=== PATIENT | female | born 1965 | race Caucasian/White ===

== ENCOUNTER 2018-12-17 00:13 | Inpatient (IN) | payer SELFPAY ==
[2018-12-17] MEDS ORDERED: Albuterol Sulfate 2.5 mg/3 ml Neb ONE (00:40)
[2018-12-17] MEDS ORDERED: Magnesium 2 GM/50 ML BAG (IN WATER) ONE (00:59)
[2018-12-17] MEDS ORDERED: Lorazepam 2 MG/ML VIAL ONE (00:59)
[2018-12-17 01:14] LABS: BHCG - Serum Negative (NEGATIVE); Pregs Control Background? CLEAR/WHITE (CLR/WHITE); Pregs Control Bar Appear? YES (CONTROL BAR)
[2018-12-17 01:21] LABS: Hemoglobin 11.7 g/dL (12.0-16.0); Mean Corpuscular HGB CONC 32.3 g/dL (32.0-36.0); Mean Corpuscular Hemoglobin 33.4 pg (27.0-31.0); Platelet Count 346 thou/uL (130-400); Red Blood Cell (RBC) Count 3.51 mill/uL (4.20-5.40); White Blood Cell (WBC) Count 16.7 thou/uL (4.8-10.8)
[2018-12-17 01:28] LABS: Band 27 % (5-11); Lymphocytes 10 % (21-51); MDiff Complete? YES; Neutrophil 63 % (42-75); Platelet Morphology Comment Appears Adequate
[2018-12-17 01:32] LABS: ALT (SGPT) 26 U/L (8-55); AST (SGOT) 49 U/L (5-34); Albumin 3.5 g/dL (3.5-5.0); Alkaline Phosphatase 46 U/L (40-150); Anion Gap 15 mmol/L (10-20); BUN (Urea Nitrogen) 16 mg/dL (9.8-20.1); Bilirubin, Total 0.2 mg/dL (0.2-1.2); Calc. Creatinine Clearance 0 mL/min (70-130); Calcium 9.1 mg/dL (7.8-10.44); Carbon Dioxide 20 mmol/L (22-29); Chloride 100 mmol/L (98-107); Estimated GFR-MDRD Greater than 90; Globulin 3.3 g/dL (2.4-3.5); Glucose 129 mg/dL (70-105); Potassium 3.4 mmol/L (3.5-5.1); Protein, Total 6.8 g/dL (6.0-8.3); Sodium 132 mmol/L (136-145)
[2018-12-17] MEDS ORDERED: HYDROcodone/Acetaminophen 5/325 mg Tablet PO PRN (02:33)
[2018-12-17] MEDS ORDERED: Bisacodyl 10 MG SUPP PR PRN (02:33)
[2018-12-17] MEDS ORDERED: Loperamide HCl 2 MG CAP PO PRN (02:33)
[2018-12-17] MEDS ORDERED: Senokot S 8.6-50 MG TAB PO PRN (02:33)
[2018-12-17] MEDS ORDERED: Calcium Carbonate 500 MG ChewTAB PO PRN (02:33)
[2018-12-17] MEDS ORDERED: Sodium Chloride 0.9% 1,000 ML IV SCH (02:45)
[2018-12-17 02:48] LABS: Actual Bicarbonate (HCO3a) 19.7 mEq/L (22-28); Analyzer IN Cardio ER; Base Excess (BEa) -7.5 mEq/L (-2.0 to +3.0); Calcium, Ionized 1.08 mmol/L (1.12-1.30); Carboxyhemoglobin (COHb) 0.2 gm% (0.0-3.0); Hemoglobin (Hb) 11.7 g/dL (12.0-16.0); Potassium - ABG Lab 2.97 mmol/L (3.70-5.30)
[2018-12-17 02:59] LABS: O2 Tension (PaO2) 49.8 mmHg (80.0-100.0); Puncture Site RRA; pH, Arterial 7.24 (7.35-7.45)
[2018-12-17] MEDS ORDERED: cefTRIAXone\\ROCEPHIN 2 GM in Sodium Chloride 0.9% 100 ML IVPB SCH (03:00)
[2018-12-17] MEDS ORDERED: methylPREDNISolone Sod Succ 40 MG VIAL ONE (03:05)
[2018-12-17] MEDS ORDERED: cefTRIAXone\\ROCEPHIN 2 GM VIAL ONE (03:07)
[2018-12-17] MEDS: NS 0.9% w/ 20 MEQ KCL 1,000 ML/1,000 ML BAG IV SCH ×2 (03:12→15:08)
[2018-12-17 03:55] LABS: Band 33 % (5-11); Hemoglobin 11.5 g/dL (12.0-16.0); Lymphocytes 8 % (21-51); MDiff Complete? YES; Mean Corpuscular HGB CONC 33.2 g/dL (32.0-36.0); Mean Corpuscular Hemoglobin 33.9 pg (27.0-31.0); Metamyelocyte 1 % (0-0); Monocytes 2 % (0-10); Neutrophil 56 % (42-75); Platelet Count 272 thou/uL (130-400); Platelet Morphology Comment Appears Adequate; RBC Distribution Width 11.9 % (11.5-14.5); Red Blood Cell (RBC) Count 3.38 mill/uL (4.20-5.40); White Blood Cell (WBC) Count 15.1 thou/uL (4.8-10.8)
[2018-12-17 04:05] LABS: ALT (SGPT) 24 U/L (8-55); AST (SGOT) 49 U/L (5-34); Albumin 3.1 g/dL (3.5-5.0); Alkaline Phosphatase 39 U/L (40-150); Anion Gap 17 mmol/L (10-20); BUN (Urea Nitrogen) 14 mg/dL (9.8-20.1); Bilirubin, Total 0.2 mg/dL (0.2-1.2); Calc. Creatinine Clearance 0 mL/min (70-130); Calcium 7.7 mg/dL (7.8-10.44); Carbon Dioxide 18 mmol/L (22-29); Chloride 101 mmol/L (98-107); Estimated GFR-MDRD Greater than 90; Globulin 2.3 g/dL (2.4-3.5); Glucose 192 mg/dL (70-105); Potassium 3.1 mmol/L (3.5-5.1); Protein, Total 5.4 g/dL (6.0-8.3); Sodium 133 mmol/L (136-145)
[2018-12-17 04:06] LABS: Troponin I Less than 0.010 ng/mL (< 0.028)
--- NOTE | 2018-12-17 04:07 | HP ---
PRIMARY CARE PHYSICIAN: [facility] Call admission. REASON FOR ADMISSION: Transfer from [facility] for bilateral pneumonia and respiratory failure. HISTORY OF PRESENT ILLNESS: A 53-year-old female who went to [place] [facility] today with complaint of increasing shortness of breath. The patient reports that she is sick since August after [place]. She has intermittent coughing since then. She was trying several [id number]-ova-[id number] remedies without any significant improvement. The patient started feeling more shortness of breath for about a week, which was gradually getting worse. She was having difficulty talking and she was also having difficulty with ambulation. She was following primary care physician in [place] and she was diagnosed with bronchitis. She was given symptomatic treatment. She was given trial of antibiotic therapy as well. The patient did not respond to any antibiotic therapy as an outpatient basis and her condition gradually deteriorated and that is why she went to [place] [facility], where she was found with hypoxia, saturation was 80% on room air. She was tachycardic. Routine blood test showed leukocytosis with left shift. She was in moderate respiratory distress. She was transferred to our hospital. Her chest x-ray over there showed bilateral multifocal pneumonia and her presentation was consistent with sepsis. Over there, the patient has received Solu-Medrol, IV fluid, and antibiotic therapy. When I saw this patient in our emergency room at that time, the patient was in respiratory distress. She was tachypneic. We repeated chest x-ray. We did ABG and started on broad-spectrum antibiotic therapy. The patient was also kept on BiPAP. The patient was seen several times in the emergency room. REVIEW OF SYSTEMS: CONSTITUTIONAL: Negative for weight loss or gain, ability to conduct usual activities. SKIN: Negative for rash, itching. EYES: Negative for double vision, pain. ENT/MOUTH: Negative for nose bleeding, neck stiffness, pain, tenderness. CARDIOVASCULAR: Negative for palpitations, dyspnea on exertion, orthopnea. RESPIRATORY: Negative for shortness of breath, wheezing, cough, hemoptysis, fever or night sweats. GASTROINTESTINAL: Negative for poor appetite, abdominal pain, heartburn, nausea, vomiting, constipation, or diarrhea. GENITOURINARY: Negative for urgency, frequency, dysuria, nocturia. MUSCULOSKELETAL: Negative for pain, swelling. NEUROLOGIC/PSYCHIATRIC: Negative for anxiety, depression. ALLERGY/IMMUNOLOGIC: Negative for skin rash, bleeding tendency. Please see my HPI for pertinent positive and negative. All other review of systems reviewed and negative except as mentioned in HPI. CURRENT HOME MEDICATIONS: 1. Adderall one tablet b.i.d. 2. Celexa 40 mg daily. 3. Clonazepam 0.5 mg t.i.d. 4. Azithromycin, she finished recently. 5. Tessalon t.i.d. p.r.n. SOCIAL HISTORY: The patient drinks alcohol occasionally once a week. She smokes about one-half pack per day for last several years. She denies any other illicit drug abuse. PAST MEDICAL HISTORY: Reviewed and negative. PAST PSYCHIATRIC HISTORY: Attention-deficit hyperactivity disorder, anxiety, and depression. PAST SURGICAL HISTORY: Hysterectomy. FAMILY HISTORY: No strong family history of premature coronary artery disease, stroke, or cancer. EMERGENCY ROOM COURSE: The patient has received Solu-Medrol 125 mg at [facility]. She received Rocephin and we are giving her here levofloxacin, vancomycin, magnesium sulfate, IV fluid, lorazepam 1 mg. ALLERGIES: NO KNOWN DRUG ALLERGIES. PHYSICAL EXAMINATION: VITAL SIGNS: Currently, blood pressure 121/85, pulse 105, respiratory rate 47, temperature 98.8, saturation 93% on BiPAP, weight 67.1 kg. GENERAL: The patient is currently in respiratory distress, unable to talk in full sentence. HEAD: Normocephalic, atraumatic. EYES: Pupils round, reactive to light. Extraocular muscle intact. ENT: Oropharynx within normal limits. Moist mucous membranes. No oral lesion. No pharyngeal erythema. No exudate. NECK: Supple. No JVD. No thyromegaly. No carotid bruit. No jugular venous distention. LUNGS: Bilateral rales noted. Bilateral wheezing heard. CARDIAC: S1, S2 regular. Tachycardia. No murmur, no gallop, no rub. ABDOMEN: Soft. Bowel sounds present. Nontender. Nondistended. No organomegaly. No mass. No suprapubic tenderness. BACK: Unremarkable. No CVA tenderness. EXTREMITIES: Upper extremities, passive movement of all joints are normal. Lower extremity, no edema. Good distal pulsation. No calf tenderness. SKIN: No skin rash. HEMATOLOGICAL SYSTEM: No lymphadenopathy. NEUROLOGIC: Nonfocal examination. SIGNIFICANT LABORATORY DATA: Chest x-ray consistent with bilateral multifocal pneumonia. CBC: WBC 16.7, hemoglobin 11.7, platelet 346 with bandemia. ABG; pH 7.24, CO2 of 47, O2 of 49.8, saturation 80.5, bicarb 19.7. BMP: Sodium 132, potassium 3.4, chloride 100, carbon dioxide 20, anion gap 15, BUN 16, creatinine 0.64, glucose 129, calcium 9.1. LFT: AST 49, ALT 26, alkaline phosphatase 46, albumin 3.5. test, negative. Troponin less than 0.010. Hospital course at [place] reviewed. ASSESSMENT AND PLAN: 1. Acute respiratory failure with hypoxia and hypercapnia secondary to underlying multifocal pneumonia. The patient is currently kept on BiPAP. We will see how she does. If her condition deteriorates and if she is not tolerating BiPAP, then we have very low threshold for intubation. We will closely monitor in IMCU. Pulmonary group will be consulted and the patient will be kept on broad-spectrum antibiotic therapy. 2. Bilateral multifocal pneumonia, community-acquired pneumonia as well as failure of outpatient therapy. The patient will be kept on broad-spectrum antibiotic therapy with Rocephin 2 g IV daily, Levaquin 750 mg daily, and vancomycin as per pharmacy adjusted dose, Mucinex 600 mg twice daily, and we will also give her Solu-Medrol 40 mg IV q.6 hourly along with IV fluid. We will also check respiratory virus panel as well as Legionella urinary test and streptococcal urinary test. We will repeat labs tomorrow. 3. Hypokalemia. The patient has hypokalemia and the patient is receiving IV fluid with potassium from [facility]. Her potassium has slight improvement. We will repeat labs tomorrow. 4. Macrocytic anemia. The patient will be given folic acid and vitamin B12 therapy. 5. Sepsis with acute organ dysfunction. The patient has sepsis criteria with leukocytosis with bandemia, respiratory failure. Source of infection is bilateral pneumonia. The patient is already on broad spectrum antibiotic therapy. 6. Tobacco abuse disorder. Smoking cessation counseling given. We will offer nicotine patch if needed. 7. Deep venous thrombosis prophylaxis. Lovenox 40 mg subcu daily. 8. Gastrointestinal prophylaxis. Pepcid 20 mg p.o. b.i.d. 9. Code status. The patient is full code. The patient does not have any surrogate decision maker. 10. Disposition plan. Based on clinical course, the patient's condition is guarded. She will require several days in hospital. Job ID: [id number]
[2018-12-17 04:46] LABS: Legionella Urinary Ag Negative (Negative); Strep pneumo Urine Ag NEGATIVE (NEGATIVE)
[2018-12-17 05:50] VITALS: BMI 34.0
[2018-12-17] MEDS: methylPREDNISolone Sod Succ 40 MG VIAL IVP SCH ×3 (06:11→16:49)
--- NOTE | 2018-12-17 07:35 | RAD ---
CHEST ONE VIEW: INDICATIONS: History of hypoxia and pneumonia. COMPARISON: None. FINDINGS: There are prominent areas of air space opacity and consolidation within both lungs, predominantly wit hin both upper lobes and both lower lobes. Heart size is mildly prominent. No pleural effusion or p neumothorax is evident. No acute osseous abnormality is evident. IMPRESSION: Multifocal pneumonia. POS: BH
[2018-12-17] MEDS: Vancomycin HCl 1 GM in Premix Bag 1 BAG IVPB SCH ×2 (08:05→20:15)
[2018-12-17] MEDS ORDERED: Enoxaparin Sodium 40 MG/0.4 ML SYRINGE ONE (08:49)
[2018-12-17] MEDS ORDERED: Famotidine 20 MG TAB ONE (08:49)
[2018-12-17] MEDS: Enoxaparin Sodium 40 MG/0.4 ML SYRINGE SC SCH (08:55)
[2018-12-17] MEDS: Famotidine 20 MG TAB PO SCH ×2 (08:58→20:16)
[2018-12-17] MEDS ORDERED: Morphine 4 MG/ML VIAL ONE (09:23)
[2018-12-17 09:37] LABS: Actual Bicarbonate (HCO3a) 22.3 mEq/L (22-28); CO2 Tension 36.7 mmHg (35.0-45.0); Carboxyhemoglobin (COHb) 0.5 gm% (0.0-3.0); Hemoglobin (Hb) 11.2 g/dL (12.0-16.0); O2 Tension (PaO2) 87.8 mmHg (80.0-100.0); Potassium - ABG Lab 3.21 mmol/L (3.70-5.30)
[2018-12-17 09:39] LABS: ALV-art Gradient 222.825 (0-20); Puncture Site LB
--- NOTE | 2018-12-17 10:14 | CON ---
DATE OF CONSULTATION: HISTORY OF PRESENT ILLNESS: A 53-year-old female from [place], [place]. I spoke to her daughter who gave adequate history, who presented to the ER in [place] with marked shortness of breath, coughing, fever, several days' duration. She smokes a pack a day. She has history of heavy alcohol abuse in the past. She was placed on BiPAP. She is now in the ICU, on BiPAP, agitated. She was given 4 mg IV morphine. MEDICATIONS: Medicine from home includes, 1. Adderall 30 mg two a day. 2. Celexa 40 mg once a day. 3. Clonazepam 0.5 three times a day. 4. Vancomycin. 5. Levaquin. 6. Magnesium. 7. Ativan. Her sats were 88% on 4 L until she was put on BiPAP. SOCIAL HISTORY: According to the daughter, the patient is otherwise relatively healthy. She works at a daycare center. PAST SURGICAL HISTORY: Otherwise included hysterectomy. PAST MEDICAL HISTORY: ADHD, otherwise negative for diabetes or hypertension. REVIEW OF SYSTEMS: Otherwise unobtainable, though she is awake, alert, responsive, somewhat agitated. PHYSICAL EXAMINATION: VITAL SIGNS: Her saturation is 90% on BiPAP, pulse 100, respiratory drives about 30 to 40 minutes, blood pressure 130/80. CHEST: Bilateral crackles and wheezing. CARDIAC: Normal S1 and S2. No gallops. ABDOMEN: Soft. LABORATORY DATA: White count 07310, hemoglobin and hematocrit are 11 and 34, platelet count is normal. Sodium is 133, otherwise lytes are normal. Her AST is 49. Her PO2 was only 49, pCO2 40, pH 7.24 on 2 L nasal O2. Blood gases on the BiPAP pending. She has had apparently emergency cultures, pending. IMPRESSION: 1. Respiratory failure, acute respiratory distress syndrome. 2. Tobacco with history of alcohol abuse. 3. Attention deficit hyperactivity disorder. 4. Depression. PLAN: I agree with present antibiotic coverage. Steroids. Neb treatments. Supportive care. If condition gets worse, to be intubated. It is a 45-minute critical time. Job ID: [id number]
[2018-12-17] MEDS: Cefepime 2 GM in Sodium Chloride 0.9% 100 ML IVPB SCH ×2 (10:54→21:21)
[2018-12-17] MEDS: guaiFENesin ER 600 MG TAB PO SCH ×2 (10:54→20:17)
[2018-12-17] MEDS: Multivitamins, Adult 10 ML, Folic Acid 1 MG, Thiamine HCl 100 MG in Dextrose 5 %-0.45 %... IV SCH (10:54)
[2018-12-17] MEDS: Morphine 4 MG/ML VIAL SLOW IVP PRN ×2 (12:17→16:49)
[2018-12-17] MEDS: Potassium Chloride 10 MEQ/100 ML PREMIX BAG IVPB SCH ×2 (13:27→16:49)
--- NOTE | 2018-12-17 14:34 | PRG ---
DATE OF SERVICE: 12/17/2018 SUBJECTIVE: The patient is in ICU A1 bed. She is intubated. She was moved from the hospital for bilateral pneumonia and respiratory failure. OBJECTIVE: VITAL SIGNS: Blood pressure is 126/80, pulse is 93, respiratory rate is 49, O2 saturation is 99. She is wearing the BiPAP mask during my visit. HEENT: Her pupils respond to light properly. Sclerae are nonicteric. LUNGS: Bilateral rales and rhonchi present on multiple different levels. HEART: S1 and S2, normal. No S3. No S4. ABDOMEN: Soft, nontender. Bowel sounds are present. No organomegaly. EXTREMITIES: No clubbing, cyanosis, or edema. NEUROLOGIC: She follows my commands. She moves her all 4 extremities when she is asked. SKIN: No rash or erythema. LABORATORY DATA: Labs showed white count of 15.1, hemoglobin 11.5, hematocrit 34.5, platelet count is 272,000. ABGs showed pH of 7.4, pCO2 of 36.7, PO2 of 87.8, and base excess is -2. Sodium of 133, potassium 3.1, chloride 101, CO2 of 18, BUN 14, creatinine 0.861, glucose 192, calcium 7.7, AST 49, ALT 24, alkaline phosphatase 39. Troponin x2 normal. Albumin 3.1, globulin 2.3. Third generation TSH 0.4497. Antigen of pneumophila, Legionella negative, and Streptococcal pneumonia antigen negative in urine. Microbiology, respiratory virus panel showed positive finding on human metapneumovirus. IMPRESSION: 1. Acute respiratory failure with hypoxemia and hypercapnia secondary to multifocal pneumonia. The patient is currently on BiPAP, managed by customer account manager. 2. Bilateral multifocal pneumonia. 3. Hypokalemia, for replacement. We will check magnesium level. 4. Microcytic anemia. 5. Sepsis with acute organ dysfunction. 6. Current tobacco user. PLAN: Plan is to continue her cefepime, Levaquin, and vancomycin. Continue IV steroids, methylprednisolone 40 mg q.6 hours IV push. Continue DuoNebs. Supplement potassium. Check magnesium level, and continue DVT prophylaxis with Lovenox. Job ID: [id number]
[2018-12-17] MEDS: clonazePAM 0.5 MG TAB PO SCH ×2 (15:17→20:17)
[2018-12-18] MEDS: NS 0.9% w/ 20 MEQ KCL 1,000 ML/1,000 ML BAG IV SCH ×3 (00:13→21:13)
[2018-12-18] MEDS: methylPREDNISolone Sod Succ 40 MG VIAL IVP SCH ×4 (00:25→17:29)
[2018-12-18] MEDS: Morphine 4 MG/ML VIAL SLOW IVP PRN ×4 (06:10→20:00)
[2018-12-18 07:13] LABS: Vancomycin, Trough 8.7 ug/mL
--- NOTE | 2018-12-18 08:18 | PRG ---
DATE OF SERVICE: 12/18/2018 SUBJECTIVE: The patient is seen and examined at the bedside. She seems to be doing better. She just was changed from BiPAP to nasal cannula. She is saturating at 95% on 4 L by nasal cannula. OBJECTIVE: VITAL SIGNS: Her blood pressure is 123/78, pulse is 83, respiratory rate is about 25, O2 saturation is as I said above 95% on 4 L by nasal cannula. HEENT: Her pupils are responding to light properly. Sclerae are nonicteric. LUNGS: Bilateral rales are present in both lungs. HEART: S1 and S2 are normal. No S3. No S4. ABDOMEN: Soft, nontender, and nondistended. EXTREMITIES: No clubbing, cyanosis, or edema. NEUROLOGIC: She follows my commands. She moves her all 4 extremities. There are no any motor deficits. LABORATORY DATA: Labs are pending. Microbiology: Two blood cultures, no growth so far. Respiratory viral, NAAT, and nasopharyngeal swab; positive for human metapneumovirus. IMPRESSION: 1. Acute respiratory failure with hypoxemia and hypercapnia secondary to multifocal pneumonia. The patient is just switched to nasal cannula from BiPAP. She seems to be doing quite well so far, but this was just done 5 minutes ago. The patient is on broad-spectrum antibiotics with vancomycin, cefepime, and Levaquin. We will continue that. 2. Bilateral multifocal pneumonia. 3. Macrocytic anemia with MCV of 102. Check her for vitamin B12 and folic acid deficiency. 4. Hypokalemia, status post replacement. This morning labs are pending. 5. Sepsis with acute organ dysfunction. 6. Current tobacco user. PLAN: As mentioned above, continue broad-spectrum antibiotics. Continue IV steroids. Continue nebulizers. Supplement electrolytes if needed based on the upcoming blood work results. Continue DVT prophylaxis. Job ID: [id number]
--- NOTE | 2018-12-18 08:25 | PRG ---
DATE OF SERVICE: 12/18/2018 SUBJECTIVE: Rica Barron, this morning, is awake, alert, responsive. She is better. X-ray still shows extensive bilateral pulmonary infiltrates. She is still on BiPAP, did not tolerate nasal O2 at 5 L. OBJECTIVE: VITAL SIGNS: Respirations 24, pulse 83, blood pressure 127/78, and sats are 98% on BiPAP. I's and O's have been consistently good. CHEST: Decreased breath sounds, bilateral crackles. CARDIAC: Normal S1 and S2. No gallops. ABDOMEN: No masses. DIAGNOSTIC DATA: X-ray shows diffuse pulmonary infiltrates. Awaiting culture reports. ASSESSMENT: 1. Respiratory failure, acute respiratory distress syndrome. 2. Viral bronchopneumonia. 3. Alcohol abuse. PLAN: Continue broad-spectrum antibiotics. Try high flow. Continue observation in the ICU. One-half hour of critical care time. Job ID: [id number]
[2018-12-18] MEDS: Vancomycin HCl 1 GM in Premix Bag 1 BAG IVPB SCH ×2 (08:38→14:54)
[2018-12-18] MEDS: guaiFENesin ER 600 MG TAB PO SCH ×2 (08:39→19:59)
[2018-12-18] MEDS: Famotidine 20 MG TAB PO SCH ×2 (08:39→19:59)
[2018-12-18] MEDS: Enoxaparin Sodium 40 MG/0.4 ML SYRINGE SC SCH (08:39)
[2018-12-18] MEDS: Citalopram 20 MG TAB PO SCH (08:39)
--- NOTE | 2018-12-18 08:40 | RAD ---
AP VIEW CHEST: HISTORY: Patient with respiratory distress and ventilator dependency. FINDINGS: AP view chest is obtained on 12/18/2018. Comparison is made to previous from 12/17/2018. AP view chest demonstrates EKG leads seen over the chest. Pulmonary vascular congestion is seen. Diffuse airspace opacities seen throughout the lungs compatible with bilateral pneumonia or pulmonary edema. No significant interval change is seen. No evidence of pneumothorax seen. IMPRESSION: Pulmonary vascular congestion and diffuse bilateral airspace opacities. Transcribed Date/Time: 12/18/2018 8:41 AM
[2018-12-18] MEDS: clonazePAM 0.5 MG TAB PO SCH ×3 (08:44→19:59)
[2018-12-18 09:11] LABS: Hemoglobin 10.2 g/dL (12.0-16.0); Mean Corpuscular HGB CONC 33.6 g/dL (32.0-36.0); Mean Corpuscular Hemoglobin 33.7 pg (27.0-31.0); Mean Platelet Volume 7.1 fL (7.4-10.4); Platelet Count 330 thou/uL (130-400); Red Blood Cell (RBC) Count 3.02 mill/uL (4.20-5.40)
[2018-12-18 09:32] LABS: Anion Gap 12 mmol/L (10-20); BUN (Urea Nitrogen) 25 mg/dL (9.8-20.1); Calc. Creatinine Clearance 137 mL/min (70-130); Calcium 8.2 mg/dL (7.8-10.44); Carbon Dioxide 26 mmol/L (22-29); Chloride 103 mmol/L (98-107); Estimated GFR-MDRD Greater than 90; Glucose 155 mg/dL (70-105); Potassium 3.4 mmol/L (3.5-5.1); Sodium 138 mmol/L (136-145)
[2018-12-18 10:03] LABS: Folate (Folic Acid) 8.6 ng/mL (7.0-31.4)
[2018-12-18] MEDS: Cefepime 2 GM in Sodium Chloride 0.9% 100 ML IVPB SCH ×2 (10:33→21:32)
[2018-12-18] MEDS: Multivitamins, Adult 10 ML, Folic Acid 1 MG, Thiamine HCl 100 MG in Dextrose 5 %-0.45 %... IV SCH (10:34)
[2018-12-18 10:52] LABS: Band 4 % (5-11); Eosinophils 1 % (0-10); Hypochromia SLIGHT = 6-15 cells (100X) (0-5/hpf); Large Platelets SLIGHT; Lymphocytes 7 % (21-51); MDiff Complete? YES; Metamyelocyte 1 % (0-0); Microcytosis SLIGHT = 6-15 cells (100X) (0-5/hpf); Monocytes 7 % (0-10); Neutrophil 80 % (42-75); Platelet Morphology Comment Appears Adequate; Polychromasia SLIGHT = 2-3 cells (100X) (0-2/hpf); Toxic Granulation SLIGHT; White Blood Cell (WBC) Count 20.5 thou/uL (4.8-10.8)
[2018-12-18] MEDS ORDERED: Morphine 4 MG/ML VIAL ONE (19:38)
[2018-12-19] MEDS: Vancomycin HCl 1 GM in Premix Bag 1 BAG IVPB SCH ×2 (00:07→08:15)
[2018-12-19] MEDS: methylPREDNISolone Sod Succ 40 MG VIAL IVP SCH ×3 (00:07→18:13)
[2018-12-19] MEDS: Morphine 4 MG/ML VIAL SLOW IVP PRN ×3 (06:04→20:00)
[2018-12-19] MEDS: NS 0.9% w/ 20 MEQ KCL 1,000 ML/1,000 ML BAG IV SCH ×2 (06:04→08:36)
[2018-12-19 07:08] LABS: Anion Gap 10 mmol/L (10-20); BUN (Urea Nitrogen) 25 mg/dL (9.8-20.1); Calc. Creatinine Clearance 128 mL/min (70-130); Calcium 8.5 mg/dL (7.8-10.44); Carbon Dioxide 33 mmol/L (22-29); Chloride 98 mmol/L (98-107); Estimated GFR-MDRD Greater than 90; Glucose 132 mg/dL (70-105); Potassium 3.5 mmol/L (3.5-5.1); Sodium 137 mmol/L (136-145)
[2018-12-19 07:26] LABS: Hemoglobin 10.5 g/dL (12.0-16.0); Mean Corpuscular HGB CONC 32.9 g/dL (32.0-36.0); Mean Platelet Volume 7.4 fL (7.4-10.4); Platelet Count 351 thou/uL (130-400); RBC Distribution Width 12.1 % (11.5-14.5); Red Blood Cell (RBC) Count 3.18 mill/uL (4.20-5.40); White Blood Cell (WBC) Count 21.1 thou/uL (4.8-10.8)
[2018-12-19 07:34] LABS: Band 1 % (5-11); Hypochromia SLIGHT = 6-15 cells (100X) (0-5/hpf); Large Platelets SLIGHT; Lymphocytes 9 % (21-51); MDiff Complete? YES; Microcytosis SLIGHT = 6-15 cells (100X) (0-5/hpf); Monocytes 4 % (0-10); Neutrophil 80 % (42-75); Nucleated RBC 1 % (0); Platelet Morphology Comment Appears Adequate; Polychromasia SLIGHT = 2-3 cells (100X) (0-2/hpf); Reactive Lymphocytes 6 % (0-10); Toxic Granulation SLIGHT
[2018-12-19] MEDS ORDERED: Bacteriostatic Water 30 ML VIAL FS PRN (08:15)
--- NOTE | 2018-12-19 08:24 | PRG ---
DATE OF SERVICE: 12/19/2018 SUBJECTIVE: This morning, she is awake, alert, and responsive. She is better, less short of breath. She is now on high-flow instead of the BiPAP. OBJECTIVE: VITAL SIGNS: Saturations are 96%, blood pressure 117/73, respiratory rate 20, pulse is 80. I's and O's . CHEST: Decreased breath sounds. No wheezing, but bilateral crackles. CARDIAC: Sinus tach. ABDOMEN: No masses. LABORATORY DATA: Lytes are normal. Bicarb is 33. All cultures so far negative. IMPRESSION: Bilateral bronchopneumonia, community-acquired. Respiratory failure, improved. Major anxiety, persistent. PLAN: Continue observation in the ICU. Maxipime and Levaquin on board. Discontinue vancomycin. Continue steroids. Continue neb treatments. Still awaiting cultures. One-half hour of critical care time. Job ID: [id number]
[2018-12-19] MEDS: Enoxaparin Sodium 40 MG/0.4 ML SYRINGE SC SCH (08:35)
[2018-12-19] MEDS: guaiFENesin ER 600 MG TAB PO SCH ×2 (08:35→19:59)
[2018-12-19] MEDS: Citalopram 20 MG TAB PO SCH (08:35)
[2018-12-19] MEDS: Famotidine 20 MG TAB PO SCH ×2 (08:35→19:59)
[2018-12-19] MEDS ORDERED: methylPREDNISolone Sod Succ 40 MG VIAL IVP SCH (09:00)
--- NOTE | 2018-12-19 09:22 | RAD ---
AP VIEW CHEST: HISTORY: Ventilator dependent patient. FINDINGS: AP view chest obtained on 12/19/2018. Comparison made to previous exam from 12/18/2018. Extensive pulmonary vascular congestion and perihilar airspace opacities seen compatible with pulmona ry edema. No significant interval changes seen. IMPRESSION: Stable AP view chest. Transcribed Date/Time: 12/19/2018 9:45 AM
[2018-12-19] MEDS: clonazePAM 0.5 MG TAB PO SCH ×3 (09:26→19:59)
[2018-12-19] MEDS: Multivitamins, Adult 10 ML, Folic Acid 1 MG, Thiamine HCl 100 MG in Dextrose 5 %-0.45 %... IV SCH (09:27)
[2018-12-19] MEDS: Cefepime 2 GM in Sodium Chloride 0.9% 100 ML IVPB SCH ×2 (09:27→22:02)
[2018-12-19] MEDS ORDERED: clonazePAM 0.5 MG TAB PO SCH (09:30)
--- NOTE | 2018-12-19 09:40 | PRG ---
DATE OF SERVICE: 12/19/2018 SUBJECTIVE: The patient is seen and examined at the bedside. She is feeling very exhausted. She did not have any appetite. She did not have any food for the last couple of days. Now, she is switched to high-flow nasal cannula. OBJECTIVE: VITAL SIGNS: Blood pressure is 117/73, respiratory rate is 25, heart rate 82, O2 saturation is 93%. She is on high-flow cannula. HEENT: Sclerae nonicteric. Oral mucosa is somewhat dry. LUNGS: Bilateral rales present. Occasional wheezes on both sides. HEART: S1, S2 normal. No S3. No S4. ABDOMEN: Soft, mildly distended, nontender. EXTREMITIES: No clubbing, cyanosis, or edema. NEUROLOGICAL EXAMINATION: She follows my commands. She moves her all 4 extremities. She is very tired and exhausted. No erythema or rash. LABORATORY DATA: Labs showed white count of 21.1, hemoglobin of 10.5, hematocrit 32.0, MCV 101, platelet count is 351,000. Sodium of 137, potassium 3.5, chloride 98, CO2 of 33, BUN 25, creatinine 0.62, glucose 132. Procalcitonin 0.14. Vancomycin trough 19.0. Vitamin B12 1739 and folic acid 8.6. Chest x-ray with some improvement of the bilateral infiltrates. IMPRESSION: 1. Acute respiratory failure with hypoxemia and hypercapnia secondary to multifocal pneumonia. The patient is switched to high-flow cannula. She seems to be oxygenating fine. Her antibiotic regimen was trimmed to cefepime and Levaquin, and vancomycin was stopped by credit control officer. 2. Bilateral multifocal pneumonia. 3. Macrocytic anemia with normal B12 and folic acid levels. 4. Hypokalemia, status post replacement, improved. 5. Sepsis with acute organ dysfunction. 6. Current tobacco user. PLAN: Plan is to continue cefepime and Levaquin. Vancomycin was stopped. We will continue Medrol IV push q.6. We will encourage her to eat her breakfast this morning, but she says she is very exhausted. Continue DVT prophylaxis and PUD prophylaxis and get PT to work with her. Job ID: [id number]
[2018-12-20] MEDS: methylPREDNISolone Sod Succ 40 MG VIAL IVP SCH (05:07)
[2018-12-20] MEDS: Morphine 4 MG/ML VIAL SLOW IVP PRN (05:19)
[2018-12-20 05:24] LABS: Anion Gap 12 mmol/L (10-20); BUN (Urea Nitrogen) 16 mg/dL (9.8-20.1); Calc. Creatinine Clearance 144 mL/min (70-130); Calcium 8.1 mg/dL (7.8-10.44); Carbon Dioxide 30 mmol/L (22-29); Chloride 99 mmol/L (98-107); Estimated GFR-MDRD Greater than 90; Glucose 123 mg/dL (70-105); Potassium 3.4 mmol/L (3.5-5.1); Sodium 138 mmol/L (136-145)
[2018-12-20] MEDS: NS 0.9% w/ 20 MEQ KCL 1,000 ML/1,000 ML BAG IV SCH (05:24)
[2018-12-20 05:32] LABS: Hemoglobin 10.4 g/dL (12.0-16.0); Hypochromia SLIGHT = 6-15 cells (100X) (0-5/hpf); Lymphocytes 23 % (21-51); MDiff Complete? YES; Macrocytosis SLIGHT = 6-15 cells (100X) (0-5/hpf); Mean Corpuscular HGB CONC 33.4 g/dL (32.0-36.0); Mean Corpuscular Hemoglobin 33.7 pg (27.0-31.0); Monocytes 5 % (0-10); Neutrophil 72 % (42-75); Platelet Count 364 thou/uL (130-400); Platelet Morphology Comment Appears Adequate; RBC Distribution Width 12.1 % (11.5-14.5); Red Blood Cell (RBC) Count 3.09 mill/uL (4.20-5.40); White Blood Cell (WBC) Count 18.5 thou/uL (4.8-10.8)
[2018-12-20] MEDS: Multivitamins, Adult 10 ML, Folic Acid 1 MG, Thiamine HCl 100 MG in Dextrose 5 %-0.45 %... IV SCH (06:14)
--- NOTE | 2018-12-20 07:47 | RAD ---
Chest AP view INDICATION: Intubation COMPARISON: December 19, 2018 FINDINGS: Lungs:Perihilar airspace opacities are stable. Cardiac silhouette pulmonary vasculature:Heart size is stable. Pulmonary vascular congestion persists . Pleural spaces:Tiny bilateral pleural effusions are stable. No pneumothorax is demonstrated. Upper abdomen:No abnormality seen. Osseous structures: No acute osseous abnormality. IMPRESSION: Stable findings suggesting either volume overload or CHF. Continued follow-up is recommen ded.
[2018-12-20] MEDS: Famotidine 20 MG TAB PO SCH ×2 (08:53→20:35)
[2018-12-20] MEDS: clonazePAM 0.5 MG TAB PO SCH ×3 (08:53→20:35)
[2018-12-20] MEDS: guaiFENesin ER 600 MG TAB PO SCH ×2 (08:54→20:35)
[2018-12-20] MEDS: Citalopram 20 MG TAB PO SCH (08:54)
[2018-12-20] MEDS: Enoxaparin Sodium 40 MG/0.4 ML SYRINGE SC SCH (08:54)
[2018-12-20] MEDS: Cefepime 2 GM in Sodium Chloride 0.9% 100 ML IVPB SCH ×2 (08:58→20:34)
--- NOTE | 2018-12-20 09:25 | PRG ---
DATE OF SERVICE: 12/20/2018 SUBJECTIVE: This morning, she is awake, alert, responsive. OBJECTIVE: VITAL SIGNS: Saturations are 98% on 4L, pulse 66, blood pressure 130/60. GENERAL: She did not sleep much. Her I's and O's have been consistently equal. CHEST: Bilateral crackles. No wheezing. CARDIAC: Normal S1 and S2. No gallops. ABDOMEN: No masses. LABORATORY DATA: White count 18,000 with left shift. Lytes are normal. IMPRESSION: 1. Bilateral bronchopneumonia, acute respiratory distress syndrome, culture negative. 2. Depression. 3. Alcohol abuse. PLAN: Switch over to oral antibiotics and prednisone. Continue neb treatment. She can probably be transferred out to a monitored bed. Continue PT and supportive care. TIME SPENT: One-half hour of critical time. Job ID: [id number]
--- NOTE | 2018-12-20 10:17 | PRG ---
DATE OF SERVICE: 12/20/2018 SUBJECTIVE: The patient is seen and examined at the bedside and she is gradually getting better. She ate some food yesterday. She was started on PT yesterday. She is still weak and coughing a lot. It is mostly dry cough. OBJECTIVE: VITAL SIGNS: Blood pressure is 136/80, pulse is 71, temperature is 98.4, maximal temperature is 98.6, respiratory rate is 22, and O2 saturation is 94% on nasal cannula. HEENT: Head is atraumatic and normocephalic. Sclerae are nonicteric. Oral mucosa is somewhat dry. NECK: Supple. LUNGS: Bilateral rales present on both sides in the upper and lower lobes, but it has improved. ABDOMEN: Soft and nontender. Bowel sounds are present. No organomegaly. HEART: S1 and S2 normal. No S3. No S4. No any murmur. EXTREMITIES: No clubbing, cyanosis, or edema. NEUROLOGIC: She is alert and oriented x4. There is no any motor or sensory deficits present. Cranial nerves are intact. LABORATORY DATA: Labs showed white count is down to 18.5, hemoglobin 10.4, hematocrit 31.2, and platelet count is 364,000. Sodium of 138, potassium 3.4, chloride 99, CO2 of 30, BUN 16, creatinine 0.55, glucose 123, and calcium 8.3. X-ray done this morning showed some findings of possible volume overload. IMPRESSION: 1. Acute respiratory failure with hypoxemia and hypercapnia secondary to multifocal pneumonia. The patient is doing gradually better. She continued on cefepime and she has switch to oral Levaquin today by border guard. Also, she is switched to oral prednisone. 2. Bilateral multifocal pneumonia. 3. Microcytic anemia. 4. Hypokalemia for replacement. 5. Sepsis with acute organ dysfunction. 6. Current tobacco user. PLAN: As I mentioned above, continue cefepime and Levaquin. Continue PT. She is switched to oral prednisone. We will continue DVT prophylaxis and GI prophylaxis. Job ID: [id number]
[2018-12-20] MEDS: Benzonatate 100 MG CAP PO SCH ×2 (14:49→20:35)
[2018-12-20] MEDS: Temazepam 15 MG CAP PO PRN (20:35)
[2018-12-21 06:27] LABS: #Basophils 0.1 thou/uL (0.0-0.2); #Eosinphils 0.1 thou/uL (0.0-0.7); #Monocytes 0.4 thou/uL (0.11-0.59); #Neutrophils 8.5 thou/uL (1.40-6.50); %Eosinophils 1.1 % (0.0-10.0); %Lymphocytes 30.2 % (21.0-51.0); %Monocytes 3.3 % (0.0-10.0); %Neutrophils 64.3 % (42.0-75.0); Hemoglobin 10.5 g/dL (12.0-16.0); Mean Corpuscular HGB CONC 32.9 g/dL (32.0-36.0); Mean Corpuscular Hemoglobin 33.4 pg (27.0-31.0); Mean Platelet Volume 7.1 fL (7.4-10.4); Platelet Count 392 thou/uL (130-400); RBC Distribution Width 12.3 % (11.5-14.5); Red Blood Cell (RBC) Count 3.15 mill/uL (4.20-5.40); White Blood Cell (WBC) Count 13.2 thou/uL (4.8-10.8)
[2018-12-21 06:55] LABS: Anion Gap 13 mmol/L (10-20); BUN (Urea Nitrogen) 20 mg/dL (9.8-20.1); Calc. Creatinine Clearance 144 mL/min (70-130); Calcium 8.1 mg/dL (7.8-10.44); Carbon Dioxide 33 mmol/L (22-29); Chloride 96 mmol/L (98-107); Estimated GFR-MDRD Greater than 90; Glucose 98 mg/dL (70-105); Sodium 139 mmol/L (136-145)
[2018-12-21 07:08] LABS: Potassium 2.9 mmol/L (3.5-5.1)
[2018-12-21] MEDS ORDERED: predniSONE 20 MG TAB PO SCH (08:00)
[2018-12-21] MEDS: Enoxaparin Sodium 40 MG/0.4 ML SYRINGE SC SCH (08:39)
[2018-12-21] MEDS: Nicotine 21 MG PATCH TOP SCH (08:39)
[2018-12-21] MEDS: ALPRAZolam 0.25 MG TAB PO PRN ×2 (08:40→14:37)
[2018-12-21] MEDS: guaiFENesin ER 600 MG TAB PO SCH ×2 (08:40→21:01)
[2018-12-21] MEDS: Famotidine 20 MG TAB PO SCH (08:40)
[2018-12-21] MEDS: Potassium Chloride 20 MEQ TAB PO SCH ×3 (08:40→16:17)
[2018-12-21] MEDS: Citalopram 20 MG TAB PO SCH (08:40)
[2018-12-21] MEDS: Benzonatate 100 MG CAP PO SCH ×3 (08:41→21:01)
[2018-12-21] MEDS: Cefepime 2 GM in Sodium Chloride 0.9% 100 ML IVPB SCH ×2 (08:41→21:00)
[2018-12-21] MEDS: clonazePAM 0.5 MG TAB PO SCH ×3 (08:41→21:01)
[2018-12-21] MEDS: predniSONE 20 MG TAB PO SCH ×2 (08:41→21:01)
--- NOTE | 2018-12-21 08:41 | RAD ---
XR Chest 1 View Portable HISTORY: Dyspnea COMPARISON: Prior day study. FINDINGS: Heart size is within normal limits. The mainly perihilar lung opacities show slight improve ment as compared to the prior exam still persistent changes in the upper lobes particularly on the right. IMPRESSION: Improvement to the parahilar lung opacities suggesting resolving edema. Changes do asymme trically involve the upper lobes more so on the right of the possibility that this is an atypical pneumonia is not excluded continued follow-up chest films are suggested
--- NOTE | 2018-12-21 09:31 | PRG ---
DATE OF SERVICE: 12/21/2018 SUBJECTIVE: Rica Barron is better this morning, less encephalopathic. Nose is congested. OBJECTIVE: VITAL SIGNS: Saturations are 92% on room air, pulse 83, respiratory rate 18, and blood pressure 121/68. CHEST: Reveals decreased breath sounds with bilateral wheezing. CARDIAC: Normal S1 and S2. No gallops. ABDOMEN: No masses. LABORATORY DATA: Unremarkable. Potassium 2.9. White count is down to 13,000. IMPRESSION: History of depression,//ADHD, respiratory failure, pneumonia, acute respiratory distress syndrome, major anxiety. PLAN: Switch over to oral antibiotics. Continue neb treatment and PT. We will follow. Job ID: [id number] [facility]
[2018-12-21] MEDS: Fluticasone Propionate Nasal Spray 16 gm Bottle NASAL SCH ×2 (09:42→21:03)
--- NOTE | 2018-12-21 09:44 | PRG ---
DATE OF SERVICE: 12/21/2018 SUBJECTIVE: The patient is seen and examined at the bedside. She is gradually getting better. She complains about nose congestion and she is getting hungry. She will eat breakfast. OBJECTIVE: VITAL SIGNS: Blood pressure is 114/88, pulse is 83, respiratory rate is 23, O2 saturation is 92% on room air. HEENT: Pupils are quite dilated approximately 3 to 4 mm similar bilaterally, responding to light properly. Sclerae are nonicteric. Oral mucosa is somewhat dry. LUNGS: Bilateral rales present in the upper and lower lobes, somewhat diminished since yesterday. HEART: S1 and S2 normal. No S3. No S4. ABDOMEN: Soft, nontender, mildly distended. EXTREMITIES: No clubbing, cyanosis, or edema. NEUROLOGIC: She follows my commands. She moves all four extremities. There is no any motor or sensory deficits. Cranial nerves are intact. LABORATORY DATA: Labs showed a white count of 13.2, hemoglobin 10.5, hematocrit is 32.0, platelet count 392,000. Chemistry shows sodium of 138, potassium 2.9, chloride 96, CO2 of 33, BUN 20, creatinine 0.55, glucose 98, calcium 8.1. Microbiology, no new findings. IMPRESSION: 1. Acute respiratory failure with hypoxemia and hypercapnia secondary to multifocal pneumonia. 2. Bilateral multifocal pneumonia. 3. Hypokalemia. We will replace her with 40 mEq of KCl q.4 hours x3, and check her magnesium level. 4. Microcytic anemia with normal folic acid and vitamin B12. 5. Sepsis with acute organ dysfunction, improved. 6. Current tobacco user. We are going to start her on Nicoderm patch 21 mg, change daily and Xanax 0.25 mg q.6 hours p.r.n. as needed. She seems to be somewhat anxious. PLAN: Plan is to continue her current regimen. She will be supplemented with potassium and magnesium if it is deficient. We will continue PT. We will give her Afrin two sprays to each nostril twice a day for her nasal congestion and will probably be able to send her out to the medical floor or telemetry today later. Job ID: [id number]
[2018-12-21] MEDS: Oxymetazoline HCl 0.05% ( 15 ML ) NASAL SCH ×2 (09:45→21:03)
[2018-12-21] MEDS: Acetaminophen 325 MG TAB PO PRN (16:17)
[2018-12-21] MEDS: Mometasone/Formoterol 120 PUFF INHALER INH SCH (20:06)
[2018-12-21] MEDS: Temazepam 15 MG CAP PO PRN (21:01)
[2018-12-22] MEDS: ALPRAZolam 0.25 MG TAB PO PRN ×2 (00:16→21:29)
[2018-12-22] MEDS: Mometasone/Formoterol 120 PUFF INHALER INH SCH ×2 (07:01→19:04)
[2018-12-22 07:41] LABS: Anion Gap 12 mmol/L (10-20); BUN (Urea Nitrogen) 11 mg/dL (9.8-20.1); Calc. Creatinine Clearance 150 mL/min (70-130); Calcium 8.5 mg/dL (7.8-10.44); Carbon Dioxide 32 mmol/L (22-29); Chloride 101 mmol/L (98-107); Estimated GFR-MDRD Greater than 90; Glucose 120 mg/dL (70-105); Sodium 141 mmol/L (136-145)
--- NOTE | 2018-12-22 09:17 | PRG ---
DATE OF SERVICE: 12/22/2018 SUBJECTIVE: This morning, awake, and responsive. OBJECTIVE: VITAL SIGNS: Saturations are 95% on 3L, temperature 98 blood pressure 101/57. CHEST: Decreased breath sounds. No wheezing. CARDIAC: Normal S1 and S2. No gallops. ABDOMEN: No masses. LABORATORY DATA: Her bicarb on the chemistry was 32. X-ray yesterday shows much improvement in the bilateral pulmonary infiltrates. IMPRESSION: 1. Respiratory failure. 2. Bilateral bronchopneumonia, community-acquired. All cultures negative. PLAN: Levaquin, steroids, and neb treatment. PT and supportive care. Hopefully, she can be discharged home in the next day or 2 if she is ambulating. Job ID: [id number]
[2018-12-22] MEDS: Benzonatate 100 MG CAP PO SCH ×3 (09:21→21:32)
[2018-12-22] MEDS: Enoxaparin Sodium 40 MG/0.4 ML SYRINGE SC SCH (09:21)
[2018-12-22] MEDS: clonazePAM 0.5 MG TAB PO SCH ×3 (09:22→21:28)
[2018-12-22] MEDS: guaiFENesin ER 600 MG TAB PO SCH ×2 (09:22→21:27)
[2018-12-22] MEDS: predniSONE 20 MG TAB PO SCH ×2 (09:22→21:27)
[2018-12-22] MEDS: Citalopram 20 MG TAB PO SCH (09:22)
[2018-12-22] MEDS: Fluticasone Propionate Nasal Spray 16 gm Bottle NASAL SCH ×2 (09:23→21:27)
[2018-12-22] MEDS: Nicotine 21 MG PATCH TOP SCH (09:25)
[2018-12-22] MEDS: Oxymetazoline HCl 0.05% ( 15 ML ) NASAL SCH ×2 (09:28→21:28)
--- NOTE | 2018-12-22 16:07 | PDOC.PN ---
- Subjective Encounter Start Date: 12/22/18 Encounter Start Time: 16:05 Ms. Barron was seen today in follow-up of Pneumonia. She says she is feeling better. she was able to walk some without difficulty. - Objective Resuscitation Status - Order Detail: 12/17/18 02:33 Resuscitation Status Routine Resuscitation Status: FULL: Full Resuscitation MAR Reviewed: Yes Vital Signs & Weight: Vital Signs (12 hours) Temp Pulse Resp BP BP Pulse Ox 12/22/18 15:35 93 L 12/22/18 15:34 98.4 F 116 H 18 116/72 93 L 12/22/18 12:47 91 18 91 L 12/22/18 12:00 96.5 F L 78 20 109/65 95 12/22/18 08:00 98.3 F 85 18 112/65 93 L 12/22/18 07:04 95 12/22/18 07:01 79 16 95 Weight Admit Weight 168 lb 3.403 oz Weight 168 lb 3.403 oz Most Recent Monitor Data Heart Rate from ECG 90 NIBP 119/85 NIBP BP-Mean 96 Respiration from ECG 22 SpO2 87 I&O: 12/21/18 12/22/18 12/23/18 06:59 06:59 06:59 Intake Total 1656 1320 Output Total 1625 2150 Balance 31 -830 Result Diagrams: 12/21/18 04:23 12/22/18 07:12 Phys Exam - Physical Examination HEENT: PERRLA Respiratory: wheezing present + wheezing, scattered, as well as some rhonchi Cardiovascular: RRR, no significant murmur, no rub Gastrointestinal: soft, non-tender, no distention, positive bowel sounds Musculoskeletal: no edema, pulses present Neurological: non-focal, normal sensation Dx/Plan (1) Pneumonia Code(s): J18.9 - PNEUMONIA, UNSPECIFIED ORGANISM Status: Acute (2) Acute respiratory failure with hypoxemia Code(s): J96.01 - ACUTE RESPIRATORY FAILURE WITH HYPOXIA Status: Acute (3) Sepsis Code(s): A41.9 - SEPSIS, UNSPECIFIED ORGANISM Status: Acute - Plan * Pneumonia- improving * she has been changed to oral antibiotics, and is clinically stable * Anticipate discharge home tomorrow.
[2018-12-22] MEDS: Temazepam 15 MG CAP PO PRN (21:29)
[2018-12-22] MEDS: Acetaminophen 325 MG TAB PO PRN (21:32)
[2018-12-22] MEDS: AMPHETAMINE PO SCH ×5 (23:00→23:04)
[2018-12-22] MEDS: [UNRECOGNIZED DRUG - OTHER] PO SCH ×5 (23:00→23:04)
[2018-12-22] MEDS: DEXTROAMPHETAMINE PO SCH ×5 (23:00→23:04)
[2018-12-23] MEDS: Mometasone/Formoterol 120 PUFF INHALER INH SCH (07:42)
[2018-12-23] MEDS: predniSONE 20 MG TAB PO SCH (08:47)
[2018-12-23] MEDS: Benzonatate 100 MG CAP PO SCH ×2 (08:47→14:40)
[2018-12-23] MEDS: clonazePAM 0.5 MG TAB PO SCH ×2 (08:47→14:40)
[2018-12-23] MEDS: guaiFENesin ER 600 MG TAB PO SCH (08:47)
[2018-12-23] MEDS: Citalopram 20 MG TAB PO SCH (08:48)
[2018-12-23] MEDS: Enoxaparin Sodium 40 MG/0.4 ML SYRINGE SC SCH (08:48)
[2018-12-23] MEDS: Nicotine 21 MG PATCH TOP SCH (08:48)
[2018-12-23] MEDS: Fluticasone Propionate Nasal Spray 16 gm Bottle NASAL SCH (08:49)
[2018-12-23] MEDS: Oxymetazoline HCl 0.05% ( 15 ML ) NASAL SCH (08:50)
--- NOTE | 2018-12-23 10:02 | PRG ---
DATE OF SERVICE: 12/23/2018 SUBJECTIVE: Rica Barron is much better this morning, less pain, less shortness of breath. OBJECTIVE: VITAL SIGNS: Saturations are 94%_ on room air, respirations 16, temperature 98, blood pressure 120/63. CHEST: No wheezing, crackles. CARDIAC: Normal S1, S2. No gallops. ABDOMEN: No masses. ASSESSMENT: 1. Bilateral bronchopneumonia. 2. Respiratory failure. 3. Tobacco abuse. 4. Attention deficit hyperactivity disorder. PLAN: She can be discharged home on Levaquin for 5 days, prednisone for 5 days. She has rescue inhaler as needed. Job ID: [id number] MTDD
--- NOTE | 2018-12-23 13:04 | PDOC.PN ---
- Subjective Encounter Start Date: 12/23/18 Encounter Start Time: 13:03 Ms. Barron was seen today in follow-up of bilateral pneumonia. She says she feels much better. - Objective Resuscitation Status - Order Detail: 12/17/18 02:33 Resuscitation Status Routine Resuscitation Status: FULL: Full Resuscitation MAR Reviewed: Yes Vital Signs & Weight: Vital Signs (12 hours) Temp Pulse Resp BP Pulse Ox 12/23/18 08:00 98.3 F 97 16 97/64 95 12/23/18 07:40 92 16 94 L 12/23/18 03:07 98.0 F 71 18 120/63 93 L Weight Admit Weight 168 lb 3.403 oz Weight 168 lb 3.403 oz Most Recent Monitor Data Heart Rate from ECG 90 NIBP 119/85 NIBP BP-Mean 96 Respiration from ECG 22 SpO2 87 I&O: 12/22/18 12/23/18 12/24/18 06:59 06:59 06:59 Intake Total 1320 810 Output Total 2150 Balance -830 810 Result Diagrams: 12/21/18 04:23 12/22/18 07:12 Phys Exam - Physical Examination HEENT: PERRLA Respiratory: no wheezing, no rales, no rhonchi, clear to auscultation bilateral Cardiovascular: RRR, no significant murmur, no rub Gastrointestinal: soft, non-tender, no distention, positive bowel sounds Musculoskeletal: no edema, pulses present Dx/Plan (1) Pneumonia Code(s): J18.9 - PNEUMONIA, UNSPECIFIED ORGANISM Status: Acute Qualifiers: Laterality: bilateral (2) Acute respiratory failure with hypoxemia Code(s): J96.01 - ACUTE RESPIRATORY FAILURE WITH HYPOXIA Status: Acute (3) Sepsis Code(s): A41.9 - SEPSIS, UNSPECIFIED ORGANISM Status: Acute - Plan * Bilateral Pneumonia- resolving * She is progressing well, and has been stable on oral antibiotics * Stable for discharge home..
[2018-12-23 17:17] VITALS: BP 113/75; TEMP 98.3
--- NOTE | 2018-12-24 04:00 | DIS ---
DATE OF ADMISSION: 12/17/2018 DATE OF DISCHARGE: 12/23/2018 DISCHARGE DISPOSITION: Home. PRIMARY DISCHARGE DIAGNOSES: 1. Bilateral pneumonia. 2. Acute respiratory failure with hypoxemia. 3. Attention deficit disorder. DISCHARGE MEDICATIONS: Include: 1. Prednisone 10 mg daily for 5 days as well as Levaquin 500 mg daily for 5 days. 2. Dextroamphetamine 30 mg twice daily. 3. Klonopin 0.5 mg three times a day. 4. Citalopram 40 mg daily. 5. Tessalon Perles 100 mg three times a day as needed. CODE STATUS: Full code. ALLERGIES: NO KNOWN DRUG ALLERGIES. HOSPITAL COURSE: Ms. Barron is a pleasant 53-year-old female, who was admitted to the hospital from transfer from the [facility]. She was admitted with bilateral pneumonia and also sepsis as well. She was hypoxic with O2 saturation in 80s on room air. She was admitted to the IMCU and started on IV antibiotics. She required BiPAP initially. She was seen by the Pulmonary Critical Care Medicine team, and improved steadily over the course of the next several days. She was able to be transitioned out of the Intermediate Care Unit and eventually her antibiotics were transitioned to oral antibiotic as well as oral steroids, and was then subsequently able to be discharged home. She is to have close outpatient follow up with her primary care physician in 1 to 2 weeks. Job ID: [id number]
== END 2018-12-23 18:24 | disposition home or self-care (01) | DRG 871 ==
LOC: ERS 00:13 → ERHOLD 00:45 → CCU 00:45 → 2NO 12-21 18:40
PROVIDERS: ADMIT Internal Medicine; ATTEND Internal Medicine
PROC: 5A09357 Assistance with Respiratory Ventilation, Less than 24 Consecutive Hours, Continuous Positive Airway Pressure (ICD-10-PCS; principal; 2018-12-17)
DX: A41.9 Sepsis, unspecified organism (principal); J18.9 Pneumonia, unspecified organism; J96.01 Acute respiratory failure with hypoxia; J96.02 Acute respiratory failure with hypercapnia; F17.210 Nicotine dependence, cigarettes, uncomplicated; E87.6 Hypokalemia; D53.9 Nutritional anemia, unspecified; R65.20 Severe sepsis without septic shock; F90.9 Attention-deficit hyperactivity disorder, unspecified type; F32.9 Major depressive disorder, single episode, unspecified; F41.9 Anxiety disorder, unspecified; Z79.899 Other long term (current) drug therapy; Z79.52 Long term (current) use of systemic steroids
CPT/HCPCS: 36415; 71045; 80048; 80053; 80202; 82607; 82746; 82805; 83735; 84145; 84443; 84484; 84703; 85025; 87040; 87633; 87899; 94640; 94644; 94660; 94664; 96365; 96367; 96368; 96375; J0692; J0696; J1650; J1956; J2060; J2270; J2920; J3370; J3411; J3475; J3480; J3490; J7042; J7512; J7611; J7620

== ENCOUNTER 2019-05-18 09:11 | Inpatient (IN) | payer SELFPAY ==
[2019-05-18] MEDS ORDERED: Benzocaine 20% Spray 60 ML CAN ONE (10:12)
[2019-05-18 10:13] LABS: #Lymphocytes 0.7 thou/uL (1.20-3.40); #Monocytes 0.3 thou/uL (0.11-0.59); #Neutrophils 1.8 thou/uL (1.40-6.50); %Eosinophils 0.2 % (0.0-10.0); %Lymphocytes 24.7 % (21.0-51.0); %Monocytes 9.8 % (0.0-10.0); %Neutrophils 65.3 % (42.0-75.0); Hemoglobin 16.7 g/dL (12.0-16.0); Mean Corpuscular HGB CONC 32.8 g/dL (32.0-36.0); Mean Corpuscular Hemoglobin 30.6 pg (27.0-31.0); Mean Corpuscular Volume 93.4 fL (78.0-98.0); Mean Platelet Volume 6.9 fL (7.4-10.4); Platelet Count 351 thou/uL (130-400); Red Blood Cell (RBC) Count 5.45 mill/uL (4.20-5.40); White Blood Cell (WBC) Count 2.7 thou/uL (4.8-10.8)
[2019-05-18] MEDS ORDERED: Piperacillin/Tazobactam 3.375 GM VIAL ONE (10:51)
[2019-05-18] MEDS ORDERED: Glycopyrrolate 0.2 MG/ML 5 ML SYRINGE ONE (11:46)
[2019-05-18] MEDS ORDERED: PHENYLEPHRINE-NS 100 MCG/ML 10 ML SYRINGE ONE (11:46)
[2019-05-18] MEDS ORDERED: Ondansetron PF 4 MG/2 ML Vial ONE (11:46)
[2019-05-18] MEDS ORDERED: Rocuronium Bromide 10 MG/ML (10ML VIAL) ONE (11:46)
[2019-05-18] MEDS ORDERED: Lidocaine 1% PF 5 ML VIAL ONE (11:46)
[2019-05-18] MEDS ORDERED: Succinylcholine Chloride 20 MG/ML 10 ml SYRINGE FS ONE (11:46)
[2019-05-18] MEDS ORDERED: Dexamethasone 20 MG/5 ML VIAL ONE (11:46)
[2019-05-18] MEDS ORDERED: Ketorolac Tromethamine 30 MG/ML VIAL ONE (11:46)
[2019-05-18] MEDS ORDERED: ePHEDrine 50 MG/ML VIAL ONE (11:46)
[2019-05-18] MEDS ORDERED: PROPOFOL 200 MG/20 ML VIAL ONE (11:46)
[2019-05-18] MEDS ORDERED: Fentanyl 100 MCG/2 ML VIAL ONE (12:01)
--- NOTE | 2019-05-18 12:28 | RAD ---
PORTABLE CHEST: INDICATIONS: Assess NG tube placement. TECHNIQUE: This exam includes the lower chest and upper abdomen. FINDINGS: The mid and upper lung mccord are not evaluated. There is evidence of hazy atelectasis or infiltrate in both lung bases. An NG tube has been placed and passes through the EG junction with the tip overly ing what appears to be the mid fundal region. POS: OFF
--- NOTE | 2019-05-18 13:18 | HP ---
HISTORY OF PRESENT ILLNESS: Rica Barron is a 54-year-old female, who presents to [place] with abdominal pain, onset last night. The patient smokes a pack to two packs a day. She takes occasional NSAID. She drinks one or two cleopatra a day. She had a CAT scan in [place] noting pneumoperitoneum and ascites. She had a white count of 2.7, hemoglobin of 16. Lactate of 2.1 and essentially normal comprehensive metabolic profile. CAT scan revealed pneumoperitoneum with free fluid and she had a rigid abdominal exam. By the time I have seen her, she has not been sedated, communicative, although tends to fall asleep. She is appreciated to have peritonitis on exam. This correlates with her CAT scan findings of perforated viscus. I then talked to the patient and talked to the patient's daughter per telephone. Have advised laparotomy and indicated procedures likely repair of her perforated ulcer. ALLERGIES: NONE. SOCIAL HISTORY: Tobacco, 1 to 2 packs per day. Alcohol, wine daily. PAST SURGICAL HISTORY: Laparoscopy for adhesiolysis around the left ovary, partial hysterectomy, cone cervical biopsy, laparoscopic cholecystectomy. She has never had a colonoscopy. She is single, lives with her boyfriend for 6 years. 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 PAST MEDICAL HISTORY: Chronic back problems, tobacco abuse. MEDICATIONS: 1. Vitamins. 2. Potassium. 3. Occasional Motrin. REVIEW OF SYSTEMS: Ten-point noncontributory. No history of cardiac disease. PHYSICAL EXAMINATION: VITAL SIGNS: Temperature 97.6, pulse 91, respirations 20, blood pressure 136/94. HEAD, EYES, EARS, NOSE, AND THROAT: Unremarkable. LUNGS: Clear to auscultation. ABDOMEN: Distended and diffusely rigid with peritoneal signs. EXTREMITIES: Unremarkable. No ankle edema. ASSESSMENT AND PLAN: 1. Perforated viscus. We would recommend laparotomy and indicated procedures. She understands risks and benefits, consents. 2. Tobacco abuse. 3. Chronic back pain. Job ID: [id number]
[2019-05-18] MEDS ORDERED: Pantoprazole 40 MG VIAL ONE (13:27)
[2019-05-18] MEDS ORDERED: Meperidine HCl/PF 25 MG/ML VIAL SLOW IVP PRN (13:46)
[2019-05-18] MEDS ORDERED: Promethazine HCl 25 MG/ML VIAL IM PRN (13:46)
[2019-05-18] MEDS ORDERED: PACU-Morphine 4MG/ML VIAL SLOW IVP PRN (13:46)
[2019-05-18] MEDS ORDERED: Promethazine HCl 25 MG/ML VIAL SLOW IVP PRN (13:46)
[2019-05-18] MEDS ORDERED: Ondansetron PF 4 MG/2 ML Vial IVP PRN (14:12)
[2019-05-18] MEDS ORDERED: hydrALAZINE 20 MG/ML VIAL SLOW IVP PRN (14:12)
[2019-05-18] MEDS ORDERED: Lorazepam 2 MG/ML VIAL SLOW IVP PRN (14:12)
[2019-05-18] MEDS ORDERED: Lactated Ringer's 1,000 ML IV SCH (14:30)
[2019-05-18] MEDS ORDERED: diphenhydrAMINE 50 MG/ML VIAL IVP PRN (14:42)
[2019-05-18] MEDS ORDERED: diphenhydrAMINE 25 MG CAP PO PRN (14:42)
[2019-05-18] MEDS ORDERED: diphenhydrAMINE 50 MG/ML VIAL IM PRN (14:42)
[2019-05-18] MEDS ORDERED: Naloxone HCl 0.4 mg/ml Vial IV PRN (14:42)
[2019-05-18] MEDS ORDERED: fentaNYL Citrate/PF 2,000 MCG in Sodium Chloride 0.9% 60 ML IV PRN (14:42)
[2019-05-18] MEDS ORDERED: Communication Order-Pharmacy FS SCH (14:45)
--- NOTE | 2019-05-18 14:47 | RAD ---
Exam: Chest one view portable: HISTORY: Follow-up abdominal pain tube position evaluation FINDINGS: NG tube in satisfactory location. Left subclavian catheter with the tip extending into the distal SVC . Poor inspiratory effort with linear and interstitial parenchymal changes in both bases in part related to some subsegmental atelectasis. No evidence for pneumothorax. IMPRESSION: Left central line placement without pneumothorax. Poor inspiration with stable bibasilar parenchymal changes.
[2019-05-18] MEDS ORDERED: D5 1/2 NS w/20 mEq KCL 1,000 ML ONE (14:57)
[2019-05-18] MEDS ORDERED: clonazePAM 0.5 MG TAB PO SCH (15:00)
[2019-05-18] MEDS: D5 1/2 NS w/20 mEq KCL 1,000 ML IV SCH (15:11)
[2019-05-18 18:09] VITALS: BMI 29.9
[2019-05-18] MEDS: Piperacillin/Tazobactam 4.5 GM in Sodium Chloride 0.9% 100 ML IVPB SCH (18:16)
--- NOTE | 2019-05-18 20:46 | OP ---
DATE OF PROCEDURE: 05/18/2019 PREOPERATIVE DIAGNOSES: 1. Perforated pyloric channel ulcer. 2. Two pack-a-day smoker. POSTOPERATIVE DIAGNOSES: 1. Perforated pyloric channel ulcer. 2. Two pack-a-day smoker. PROCEDURES PERFORMED: Exploratory laparotomy, abdominal washout, Heineke-Mikulicz pyloroplasty with omental patch, left subclavian vein central line. ANESTHESIA: General. DESCRIPTION OF PROCEDURE: The patient was taken to the operating room, underwent general anesthesia, abdomen was prepared with ChloraPrep and draped in routine fashion. Incision was made in the upper abdomen between the umbilicus and xiphoid, carried down through skin and subcutaneous tissue, midline fascia, entered the abdominal cavity sharply. There was inflammatory exudate and fluid in the abdominal cavity, bilious in color. It was evacuated. Bookwalter retractor used for exposure, duodenal mobilization, Heath maneuver performed, mobilizing the first and second portions of the duodenum. Once the duodenum was mobilized, using cautery, hepatic flexure taken down. The pyloric channel ulcer perforated noted. Longitudinal duodenotomy over the pylorus and distal antrum performed with a cautery and this was closed transversely in two layers with inner layer of continuous locking suture of 2-0 Vicryl and outer with interrupted Lembert suture of 3-0 silk. Omental patch fashioned, mobilized omentum from the proximal transverse colon, mobilizing and creating a flap to create omental patch, held in place with interrupted sutures of 3-0 silk. Abdominal cavity was thoroughly irrigated with several liters of fluid. Fluid evacuated. Good hemostasis noted. Sponge, needle, and instruments were correct. Midline fascia closed with continuous suture of #1 PDS. Skin and subcutaneous tissue were approximated about the umbilicus, but otherwise, left open and wound VAC applied by Wound Care Team. Left paraclavicular area was prepared with ChloraPrep and draped in routine fashion. New gloves and sterile technique used to place a left subclavian vein triple-lumen catheter, secured with 3-0 silk suture, Biopatch, sterile dressing. Each port aspirated and blood flushed with saline solution. Job ID: [id number]
[2019-05-18] MEDS: Enoxaparin Sodium 40 MG/0.4 ML SYRINGE SC SCH (21:59)
[2019-05-18] MEDS: Pantoprazole 40 MG VIAL IVP SCH (22:00)
[2019-05-19] MEDS: Piperacillin/Tazobactam 4.5 GM in Sodium Chloride 0.9% 100 ML IVPB SCH ×5 (00:36→23:40)
[2019-05-19] MEDS: D5 1/2 NS w/20 mEq KCL 1,000 ML IV SCH ×4 (00:49→20:29)
[2019-05-19] MEDS ORDERED: FLU VACC QS2019-20(6MOS UP)/PF 60 MCG/0.5 ML SYRINGE IM ONE (09:00)
[2019-05-19] MEDS: Fluconazole In NaCl,Iso-Osm 200 MG in Premix Bag 1 BAG IVPB SCH (09:50)
[2019-05-19] MEDS: Pantoprazole 40 MG VIAL IVP SCH ×2 (09:50→20:30)
[2019-05-19 09:52] LABS: Hemoglobin 13.2 g/dL (12.0-16.0); Mean Corpuscular HGB CONC 32.5 g/dL (32.0-36.0); Mean Corpuscular Hemoglobin 31.3 pg (27.0-31.0); Mean Corpuscular Volume 96.5 fL (78.0-98.0); Mean Platelet Volume 6.8 fL (7.4-10.4); Platelet Count 301 thou/uL (130-400); RBC Distribution Width 11.9 % (11.5-14.5); Red Blood Cell (RBC) Count 4.22 mill/uL (4.20-5.40)
[2019-05-19 10:02] LABS: ALT (SGPT) 88 U/L (8-55); AST (SGOT) 49 U/L (5-34); Albumin 2.9 g/dL (3.5-5.0); Alkaline Phosphatase 40 U/L (40-110); Anion Gap 11 mmol/L (10-20); BUN (Urea Nitrogen) 22 mg/dL (9.8-20.1); Bilirubin, Total 0.7 mg/dL (0.2-1.2); Calc. Creatinine Clearance 96 mL/min (70-130); Calcium 9.5 mg/dL (7.8-10.44); Carbon Dioxide 25 mmol/L (22-29); Chloride 103 mmol/L (98-107); Estimated GFR-MDRD 85; Globulin 2.7 g/dL (2.4-3.5); Glucose 108 mg/dL (70-105); Potassium 4.5 mmol/L (3.5-5.1); Protein, Total 5.6 g/dL (6.0-8.3); Sodium 134 mmol/L (136-145)
[2019-05-19 10:13] LABS: Band 32 % (5-11); Eosinophils 3 % (0-10); Lymphocytes 21 % (21-51); MDiff Complete? YES; Monocytes 3 % (0-10); Neutrophil 40 % (42-75); RBC Morphology Normal; Reactive Lymphocytes 1 % (0-10); Vacuoles SLIGHT
--- NOTE | 2019-05-19 18:13 | PRG ---
DATE OF SERVICE: 05/19/2019 SUBJECTIVE: Rica Barron is doing well. One day postop perforated ulcer repair. OBJECTIVE: VITAL SIGNS: Temperature 98.2, pulse rate 94, and blood pressure 116/71. LUNGS: Clear to auscultation. CARDIAC: Regular rate and rhythm without murmur or gallop. ABDOMEN: Soft. Gastric drainage 200 mL postoperatively. Urine output good. Her Solis was removed. She is voiding on her own. LABORATORY DATA: White count 12 and hemoglobin 13. Basic metabolic profile, normal. ASSESSMENT/PLAN: 1. Doing well, incisional wound VAC per Wound Care. 2. NG tube. Continue for now, just check a Gastrografin study in the morning. 3. Tobacco abuse. 4. Good mobility level. Continue IV fluids, n.p.o. status. Job ID: [id number]
[2019-05-19] MEDS: Enoxaparin Sodium 40 MG/0.4 ML SYRINGE SC SCH (20:28)
[2019-05-20] MEDS: D5 1/2 NS w/20 mEq KCL 1,000 ML IV SCH ×2 (05:05→13:27)
[2019-05-20] MEDS: Piperacillin/Tazobactam 4.5 GM in Sodium Chloride 0.9% 100 ML IVPB SCH ×3 (05:07→17:20)
[2019-05-20] MEDS: Fluconazole In NaCl,Iso-Osm 200 MG in Premix Bag 1 BAG IVPB SCH (08:23)
--- NOTE | 2019-05-20 11:09 | PRG ---
DATE OF SERVICE: 05/20/2019 SUBJECTIVE: The patient is 2 days status post Heineke-Mikulicz repair of perforated pyloric channel ulcer. She had an upper GI revealing patency of her repair without leakage. She has had very little out of her NG tube, overnight only 300 mL. She tolerated her swallow study without problems, without nausea or vomiting. Her NG tube has been hooked up to suction after return from a Gastrografin upper GI and there is hardly anything out. Plan at this time is to remove her NG tube. Keep her on sips and chips today and allow Dr. Reid, who is covering for me to re-evaluate her tomorrow for advancement of her diet. OBJECTIVE: LUNGS: Clear to auscultation. CARDIAC: Regular rate and rhythm without murmur or gallop. ABDOMEN: Soft. Occasional bowel sounds. EXTREMITIES: Unremarkable. ASSESSMENT AND PLAN: Doing well. Plan as above. Job ID: [id number]
[2019-05-20] MEDS ORDERED: MD-Gastroview 120 ML BOT ONE (13:00)
[2019-05-20] MEDS ORDERED: GASTROGRAFIN 30 ML BOT ONE (13:00)
[2019-05-20] MEDS: Pantoprazole 40 MG VIAL IVP SCH ×2 (13:30→20:22)
--- NOTE | 2019-05-20 13:50 | RAD ---
Upper GI HISTORY: Perforated ulcer. With surgical repair. FINDINGS: Approximately 100 cc iodinated contrast was carefully instilled into the stomach. The indwe lling nasogastric tube. Immediate imaging of the stomach into the duodenum. Diminished peristalsis of the stomach and duodenum. Contrast passed into the proximal small bowel without delay. No leak of contrast from the duodenum or stomach is apparent. Fluoroscopy time 0.5 minutes. IMPRESSION: No evidence of obstruction or leak. Diminished peristalsis from recent surgery.
[2019-05-20] MEDS: Enoxaparin Sodium 40 MG/0.4 ML SYRINGE SC SCH (20:22)
[2019-05-20] MEDS: Zolpidem Tartrate 5 MG TAB PO PRN (21:32)
[2019-05-21] MEDS: Piperacillin/Tazobactam 4.5 GM in Sodium Chloride 0.9% 100 ML IVPB SCH ×5 (00:04→18:08)
--- NOTE | 2019-05-21 01:44 | PRG ---
DATE OF SERVICE: 05/21/2019 SUBJECTIVE: The patient is status post repair of a perforated pyloric ulcer. She is being followed by Dr. Sampson and we are covering him for the weekend. The patient had her NG tube discontinued today. Tonight, she reports no nausea or vomiting. She has passed a small amount of gas and had a very small bowel movement. She remains n.p.o. and her pain is controlled. OBJECTIVE: VITAL SIGNS: Stable. The patient is afebrile. GENERAL: The patient appears in no distress. She is awake, alert, and oriented x3. ABDOMEN: Soft, minimally tender with hypoactive bowel sounds. ASSESSMENT AND PLAN: 1. Status post repair of perforated pyloric channel ulcer. 2. Plan will be to continue supportive care. Re-evaluate her in the morning. If her bowel function returns, we will start her on a clear liquid diet. Job ID: [id number]
[2019-05-21] MEDS: D5 1/2 NS w/20 mEq KCL 1,000 ML IV SCH ×3 (04:04→16:06)
[2019-05-21] MEDS: Fluconazole In NaCl,Iso-Osm 200 MG in Premix Bag 1 BAG IVPB SCH (09:26)
[2019-05-21] MEDS: Pantoprazole 40 MG VIAL IVP SCH ×2 (09:29→20:34)
[2019-05-21] MEDS ORDERED: traMADol HCl 50 MG TAB PO PRN (10:36)
[2019-05-21] MEDS ORDERED: Benzonatate 100 MG CAP PO PRN (10:38)
--- NOTE | 2019-05-21 12:03 | EKG ---
Test Reason : Blood Pressure : / mmHG Vent. Rate : 090 BPM Atrial Rate : 090 BPM P-R Int : 138 ms QRS Dur : 086 ms QT Int : 358 ms P-R-T Axes : 004 001 011 degrees QTc Int : 437 ms Normal sinus rhythm Normal ECG Confirmed by ZENON SEYMOUR ([id number]), sound editor ANA GONZALEZ ([id number]) on 05/21/2019 12:02:36 PM Referred By: HEIDI Confirmed By:ZENON SEYMOUR
[2019-05-21] MEDS: Acetaminophen 500 MG TAB PO SCH ×3 (12:26→18:10)
--- NOTE | 2019-05-21 17:37 | PRG ---
DATE OF SERVICE: 05/21/2019 SUBJECTIVE: Ms. Barron is a 54-year-old, postop repair of perforated peptic ulcer. The patient reports she has been doing good. She developed no fever or shortness of breath. She reports no nausea or vomiting. She is able to pass gas and small bowel movement. She has been walking around the floor. Her pain is well controlled. OBJECTIVE: GENERAL: The patient is lying down in bed, comfortable with no acute distress. VITAL SIGNS: Temperature 98, heart rate 82, respiratory rate 18, O2 saturation 92% on room air, and blood pressure 143/81. LUNGS: Clear bilaterally. HEART: Regular rate and rhythm. ABDOMEN: Soft, nondistended, hypoactive bowel sounds. Incision in midline abdominal wall is still clean, clear, and intact. EXTREMITIES: Neurovascularly intact x4. ASSESSMENT AND PLAN: Status post repair of perforated peptic ulcer, postop day #3. PLAN: Plan will be to continue supportive care. Continue pain control. We will start DVT prophylaxis with Lovenox and will start clear liquid today as tolerated. Encourage activity. Anticipate the patient will have regular diet tomorrow if she tolerated clear liquid diet. Job ID: [id number]
[2019-05-21] MEDS ORDERED: Piperacillin/Tazobactam 4.5 GM VIAL ONE (18:04)
[2019-05-21] MEDS: traMADol HCl 50 MG TAB PO PRN (18:11)
[2019-05-21] MEDS: Enoxaparin Sodium 40 MG/0.4 ML SYRINGE SC SCH (20:34)
[2019-05-21] MEDS: Zolpidem Tartrate 5 MG TAB PO PRN (20:34)
[2019-05-21] MEDS ORDERED: DEXTROAMPHETAMINE PO SCH (21:00)
[2019-05-21] MEDS ORDERED: AMPHETAMINE PO SCH (21:00)
[2019-05-22] MEDS: Piperacillin/Tazobactam 4.5 GM in Sodium Chloride 0.9% 100 ML IVPB SCH ×3 (00:17→18:39)
[2019-05-22] MEDS: Acetaminophen 500 MG TAB PO SCH ×4 (00:17→18:12)
[2019-05-22] MEDS: D5 1/2 NS w/20 mEq KCL 1,000 ML IV SCH (00:20)
[2019-05-22] MEDS: Bupropion 150 MG XL TAB PO SCH (08:39)
[2019-05-22] MEDS: Citalopram 20 MG TAB PO SCH (08:40)
[2019-05-22] MEDS: Pantoprazole 40 MG VIAL IVP SCH ×2 (08:41→20:58)
[2019-05-22] MEDS: Fluconazole In NaCl,Iso-Osm 200 MG in Premix Bag 1 BAG IVPB SCH (08:46)
[2019-05-22] MEDS: traMADol HCl 50 MG TAB PO PRN ×2 (10:59→18:11)
--- NOTE | 2019-05-22 15:45 | PDOC.GSPN ---
Surgery Progress Note: Subj - Subjective Narrative: Ms. Barron is POD #4 from a pyloroplasty with omental patch and left subclavian central line. Patient is ambulating, and tolerating the clear liquid diet with no N/V. She has not had a bowel movement, but is having flatus. Patient takes Zoloft at home and wanted to see if she could resume it here in the hospital. She denied any fever, chills, SOB, CP. Surgery Progress Note: Obj - Vital signs Vital signs: Vital Signs - Most Recent Temp Pulse Resp BP Pulse Ox 98.2 F 84 18 148/91 H 94 L 05/22/19 11:51 05/22/19 11:51 05/22/19 11:51 05/22/19 11:51 05/22/19 11:51 - Physical Exam General: no distress, well developed, well nourished Cardiovascular: regular rate and rhythm Respiratory: clear to auscultation, normal expansion, normal respiratory effort , breath sounds present Abdomen: soft, non tender, nondistended, positive bowel sounds Psychiatric: memory intact, oriented to time, oriented to person, oriented to place, speech is normal Wound: dressing clean,dry,intact, healing well Surgery Progress Note: Results - Labs Result Diagrams: 05/19/19 09:23 05/19/19 09:23 Surgery Progress Note: A/P - Problem (1) Perforated abdominal viscus Current Visit: Yes Code(s): R19.8 - OTH SYMPTOMS AND SIGNS INVOLVING THE DGSTV SYS AND ABDOMEN Status: Acute - Plan Plan: Patient is POD #4, she is improving well and following all the recommendations. She is tolerating po with N/V, and is ambulating with mild pain. She has yet to have a bowel movement, but is having flatus. I anticipate patient leaving tomorrow, she requested to leave in the late afternoon because that is when her ride can pick her up. I examined patient at bedside with Dr. Reid. 1. Continue ambulating 2. Advance diet to full liquids 3. d/c IV fluids 4. Change IV antibiotic to po Amoxicillin. 5. Resume home meds. 6. I anticipate patient leaving tomorrow. She needs to have wound care teaching before she leaves. Wound vac will be pulled tomorrow before she leaves. Patient to do home wet to dry dressing changes.
[2019-05-22] MEDS: clonazePAM 0.5 MG TAB PO SCH (20:58)
[2019-05-22] MEDS: Amoxicillin/Potassium Clav 875 MG TAB PO SCH (20:59)
[2019-05-22] MEDS: Zolpidem Tartrate 5 MG TAB PO PRN (20:59)
[2019-05-22] MEDS: Enoxaparin Sodium 40 MG/0.4 ML SYRINGE SC SCH (21:06)
[2019-05-23] MEDS: traMADol HCl 50 MG TAB PO PRN ×4 (00:01→16:43)
[2019-05-23] MEDS: Acetaminophen 500 MG TAB PO SCH ×4 (00:02→16:43)
--- NOTE | 2019-05-23 01:29 | PRG ---
DATE OF SERVICE: 05/23/2019 SUBJECTIVE: The patient is currently on the surgical floor. She is postoperative day 3 from repair of a perforated peptic ulcer. She was started on clear liquids today, which she is tolerating. She has been working with Physical and Occupational Therapy. She is passing gas and had a reported small bowel movement. The patient's pain is controlled. There was concern for some of her home medications that have been restarted. She states that has alleviated her anxiety. PHYSICAL EXAMINATION: VITAL SIGNS: Stable. The patient is afebrile. GENERAL: The patient is resting comfortably in bed. She is awake, alert, and oriented x3. HEENT: Unremarkable. LUNGS: Clear to auscultation bilaterally. HEART: Regular rate and rhythm. ABDOMEN: Soft. Her wound VAC has been replaced by dressing. The patient is undergoing wet-to-dry dressings. EXTREMITIES: Neurovascularly intact x4. ASSESSMENT AND PLAN: Status post repair of a perforated peptic ulcer. PLAN: Plan will be to continue supportive care. Advance her diet as tolerated and likely be discharged home within the next 24 to 48 hours. Job ID: [id number]
[2019-05-23] MEDS: [UNRECOGNIZED DRUG - MIXTURE] PO SCH ×2 (05:36→12:01)
[2019-05-23] MEDS: Amoxicillin/Potassium Clav 875 MG TAB PO SCH (08:05)
[2019-05-23] MEDS: Bupropion 150 MG XL TAB PO SCH (08:06)
[2019-05-23] MEDS: Citalopram 20 MG TAB PO SCH (08:07)
[2019-05-23] MEDS: clonazePAM 0.5 MG TAB PO SCH ×2 (08:07→16:43)
[2019-05-23] MEDS: Pantoprazole 40 MG VIAL IVP SCH (08:07)
[2019-05-23] MEDS: Fluconazole In NaCl,Iso-Osm 200 MG in Premix Bag 1 BAG IVPB SCH (08:08)
[2019-05-23 15:06] VITALS: BP 139/83
[2019-05-23 15:36] VITALS: TEMP 97.8
[2019-05-23] MEDS ORDERED: Ondansetron ODT 4 MG TAB PO PRN (16:20)
[2019-05-24] MEDS ORDERED: Fluconazole 100 MG TAB PO SCH (09:00)
== END 2019-05-23 17:04 | disposition home or self-care (01) | DRG 328 ==
LOC: ERS 09:11 → SDC 10:24 → SURG B 17:09
PROVIDERS: ADMIT Specialist; ATTEND Specialist
PROC: 0DU707Z Supplement Stomach, Pylorus with Autologous Tissue Substitute, Open Approach (ICD-10-PCS; principal; 2019-05-18)
PROC: 0W9G0ZZ Drainage of Peritoneal Cavity, Open Approach (ICD-10-PCS; 2019-05-18)
PROC: 02HV33Z Insertion of Infusion Device into Superior Vena Cava, Percutaneous Approach (ICD-10-PCS; 2019-05-18)
DX: K25.5 Chronic or unspecified gastric ulcer with perforation (principal); F17.210 Nicotine dependence, cigarettes, uncomplicated; G89.29 Other chronic pain; M54.9 Dorsalgia, unspecified; F41.9 Anxiety disorder, unspecified; Z90.49 Acquired absence of other specified parts of digestive tract
CPT/HCPCS: 36415; 51702; 71045; 74241; 80053; 83605; 85025; 86677; 90471; 90686; 93005; 96361; 96365; C9113; G0008; J1450; J1650; J2405; J2543; J3010; J3490; Q0162; Q9963